=== PATIENT | female | born 1985 | race Caucasian/White ===

== ENCOUNTER → 2023-08-06 | Outpatient (CLI) | payer OTHER | END | disposition home or self-care (01) | LOC: LAB 14:58 | PROVIDERS: ATTEND Specialist | DX: J30.1 Allergic rhinitis due to pollen (principal) ==

== ENCOUNTER → 2023-08-20 | Day surgery (SDC) | payer OTHER ==
[~2023-08-20] VITALS: Ht 172.7 cm; Wt 142.9 kg
[~2023-08-20] MED LIST: DEPO-PROVE150 MG/1 M IM; OCUFLOX 0.3% 5 M5 ML OPH; SYNTHROID,LEVO75 MCG PO; XOLAIR150 MG/1 M SQ
[2023-08-20 14:22] VITALS: BP 146/73
[2023-08-20 17:20] VITALS: BP 102/55
[2023-08-20 17:35] VITALS: BP 104/61
[2023-08-20 17:50] VITALS: BP 115/65
== END | disposition home or self-care (01) ==
LOC: SDC 08-16 11:00
PROVIDERS: ATTEND Specialist
DX: H65.493 Other chronic nonsuppurative otitis media, bilateral (principal); J30.1 Allergic rhinitis due to pollen; L50.9 Urticaria, unspecified; H69.93 Unspecified Eustachian tube disorder, bilateral; Z79.899 Other long term (current) drug therapy; Z90.89 Acquired absence of other organs; Z98.891 History of uterine scar from previous surgery; Z88.0 Allergy status to penicillin; Z88.1 Allergy status to other antibiotic agents; Z88.2 Allergy status to sulfonamides